=== PATIENT | male | born 1970 | race Caucasian/White ===

== ENCOUNTER 2020-08-20 18:45 | Inpatient (IN) | payer OTHER ==
[2020-08-20] MEDS ORDERED: KETOROLAC 15 MG/ML 1 ML VIAL IVP STA (19:20)
[2020-08-20] MEDS ORDERED: SODIUM CHLORIDE 0.9% 1,000 ML IV STA (19:20)
--- NOTE | 2020-08-20 19:29 | ED ---
Abdominal Pain HPI - General Chief Complaint: Abdominal Pain Stated Complaint: ABD pain Time Seen by Provider: 08/20/20 19:01 Source: patient Mode of arrival: ambulatory Limitations: no limitations - History of Present Illness Initial Comments: Patient is a 49-year-old male presenting to the emergency Department with complaints of abdominal pain at 3 days. Patient states his pain started as generalized abdominal discomfort and pressure about 3 days ago, followed by a few vomiting episodes. Patient states the pain has continued but has now localized to the right lower quadrant. He describes it as a dull ache, currently a 6/10. He denies any nausea or vomiting today, he states he did have a fever yesterday, did resolve with some Tylenol. He states he's only been able to tolerate a little bit of food such as bananna or soup. Denies any history of abdominal surgeries, he states he's been having regular bowel movements and passing gas. He denies any chest pain or shortness of breath, has no further complaints. He is an every day smoker, he denies alcohol or drug use. Upon arrival to the ER he is slightly tachycardia, otherwise vitals are normal. - Related Data Home Medications Medication Instructions Recorded Confirmed Atorvastatin Calcium [Lipitor] 10 mg PO DAILY 08/20/20 08/20/20 Omeprazole 20 mg PO DAILY 08/20/20 08/20/20 Sildenafil Citrate [Viagra] 100 mg PO DAILY PRN 08/20/20 08/20/20 Tamsulosin HCl [Flomax] 0.4 mg PO DAILY 08/20/20 08/20/20 Allergies Allergy/AdvReac Type Severity Reaction Status Date / Time No Known Allergies Allergy Verified 08/20/20 21:13 Review of Systems ROS Statement: Those systems with pertinent positive or pertinent negative responses have been documented in the HPI. ROS Other: All systems not noted in ROS Statement are negative. Past Medical History Past Medical History: No Reported History History of Any Multi-Drug Resistant Organisms: None Reported Past Surgical History: Orthopedic Surgery Past Psychological History: No Psychological Hx Reported Smoking Status: Current every day smoker Past Alcohol Use History: None Reported Past Drug Use History: None Reported General Exam - General Exam Comments Initial Comments: GENERAL: Patient is well-developed and well-nourished. Patient is nontoxic and in mild distress. HEAD: Atraumatic, normocephalic. EYES: Pupils equal round and reactive to light, extraocular movements intact, sclera anicteric, conjunctiva are normal. Eyelids were unremarkable. ENT: TMs normal, nares patent, oropharynx clear without exudates. Moist mucous membranes. NECK: Normal range of motion, supple without lymphadenopathy or JVD. LUNGS: Unlabored respirations. Breath sounds clear to auscultation bilaterally and equal. No wheezes rales or rhonchi. HEART: Regular rate and rhythm without murmurs, rubs or gallops. ABDOMEN: Tender to palpation of the right lower quadrant, umbilical area. Positive guarding. Soft, normoactive bowel sounds. No masses appreciated. : Deferred MUSCULOSKELETAL: Normal extremities with adequate strength and normal range of motion, no pitting or edema. No clubbing or cyanosis. NEUROLOGICAL: Patient is alert and oriented x 3. Motor and sensory are also intact. Cranial nerves II through XII grossly intact. Symmetrical smile. Normal speech, normal gait. PSYCH: Normal mood, normal affect. SKIN: Warm, Dry, normal turgor, no rashes or lesions noted. Limitations: no limitations Course Vital Signs 08/20/20 18:47 Temperature 99.0 F Pulse Rate 103 H Respiratory 18 Rate Blood Pressure 115/70 O2 Sat by Pulse 96 Oximetry Medical Decision Making - Medical Decision Making Patient is a 49-year-old male presenting with abdominal discomfort, 2 episodes o f vomiting and a fever yesterday. Abdominal pain 3 days, is now localized to the right lower quadrant, umbilical area. No history of abdominal surgeries. His vitals are stable, is afebrile today. Labs show a 21.2 white count, lactic acid is normal at 1.6. CT of the abdomen shows a 15 mm dilated appendix, findings of acute appendicitis with moderate to marked inflammatory changes. No evidence of perforation. I discussed these findings with the patient. Patient will be admitted, patient accepted by Dr. Fonseca. Patient will remain NPO, started on antibiotics. Rapid covid is negative. Case discussed with Dr. Wyman. - Lab Data Result diagrams: 08/20/20 19:32 08/20/20 19:32 Lab Results 08/20/20 08/20/20 08/20/20 Range/Units 19:32 19:32 19:32 WBC 21.2 H (3.8-10.6) k/uL RBC 5.53 (4.30-5.90) m/uL Hgb 16.9 (13.0-17.5) gm/dL Hct 48.2 (39.0-53.0) % MCV 87.2 (80.0-100.0) fL MCH 30.6 (25.0-35.0) pg MCHC 35.1 (31.0-37.0) g/dL RDW 13.6 (11.5-15.5) % Plt Count 291 (150-450) k/uL MPV 7.0 Neutrophils % 77 % Lymphocytes % 12 % Monocytes % 8 % Eosinophils % 1 % Basophils % 1 % Neutrophils # 16.3 H (1.3-7.7) k/uL Lymphocytes # 2.5 (1.0-4.8) k/uL Monocytes # 1.6 H (0-1.0) k/uL Eosinophils # 0.3 (0-0.7) k/uL Basophils # 0.2 (0-0.2) k/uL PT 10.4 (9.0-12.0) sec INR 1.0 (<1.2) APTT 21.6 L (22.0-30.0) sec Sodium (137-145) mmol/L Potassium (3.5-5.1) mmol/L Chloride (98-107) mmol/L Carbon Dioxide (22-30) mmol/L Anion Gap mmol/L BUN (9-20) mg/dL Creatinine (0.66-1.25) mg/dL Est GFR (CKD-EPI)AfAm (>60 ml/min/1.73 sqM) Est GFR (CKD-EPI)NonAf (>60 ml/min/1.73 sqM) Glucose (74-99) mg/dL Plasma Lactic Acid Robert (0.7-2.0) mmol/L Calcium (8.4-10.2) mg/dL Total Bilirubin (0.2-1.3) mg/dL AST (17-59) U/L ALT (4-49) U/L Alkaline Phosphatase (38-126) U/L Total Protein (6.3-8.2) g/dL Albumin (3.5-5.0) g/dL Amylase (30-110) U/L Lipase (23-300) U/L Urine Color Yellow Urine Appearance Clear (Clear) Urine pH 6.0 (5.0-8.0) Ur Specific [place] 1.027 (1.001-1.035) Urine Protein Trace H (Negative) Urine Glucose (UA) Negative (Negative) Urine Ketones Negative (Negative) Urine Blood Negative (Negative) Urine Nitrite Negative (Negative) Urine Bilirubin Negative (Negative) Urine Urobilinogen 2.0 (<2.0) mg/dL Ur Leukocyte Esterase Negative (Negative) Coronavirus (PCR) (Not Detectd) 08/20/20 08/20/20 08/20/20 Range/Units 19:32 19:32 20:58 WBC (3.8-10.6) k/uL RBC (4.30-5.90) m/uL Hgb (13.0-17.5) gm/dL Hct (39.0-53.0) % MCV (80.0-100.0) fL MCH (25.0-35.0) pg MCHC (31.0-37.0) g/dL RDW (11.5-15.5) % Plt Count (150-450) k/uL MPV Neutrophils % % Lymphocytes % % Monocytes % % Eosinophils % % Basophils % % Neutrophils # (1.3-7.7) k/uL Lymphocytes # (1.0-4.8) k/uL Monocytes # (0-1.0) k/uL Eosinophils # (0-0.7) k/uL Basophils # (0-0.2) k/uL PT (9.0-12.0) sec INR (<1.2) APTT (22.0-30.0) sec Sodium 133 L (137-145) mmol/L Potassium 4.6 (3.5-5.1) mmol/L Chloride 102 (98-107) mmol/L Carbon Dioxide 20 L (22-30) mmol/L Anion Gap 11 mmol/L BUN 13 (9-20) mg/dL Creatinine 0.94 (0.66-1.25) mg/dL Est GFR (CKD-EPI)AfAm >90 (>60 ml/min/1.73 sqM) Est GFR (CKD-EPI)NonAf >90 (>60 ml/min/1.73 sqM) Glucose 149 H (74-99) mg/dL Plasma Lactic Acid Robert 1.6 (0.7-2.0) mmol/L Calcium 9.0 (8.4-10.2) mg/dL Total Bilirubin 1.1 (0.2-1.3) mg/dL AST 32 (17-59) U/L ALT 25 (4-49) U/L Alkaline Phosphatase 46 (38-126) U/L Total Protein 6.8 (6.3-8.2) g/dL Albumin 3.9 (3.5-5.0) g/dL Amylase 55 (30-110) U/L Lipase 60 (23-300) U/L Urine Color Urine Appearance (Clear) Urine pH (5.0-8.0) Ur Specific [place] (1.001-1.035) Urine Protein (Negative) Urine Glucose (UA) (Negative) Urine Ketones (Negative) Urine Blood (Negative) Urine Nitrite (Negative) Urine Bilirubin (Negative) Urine Urobilinogen (<2.0) mg/dL Ur Leukocyte Esterase (Negative) Coronavirus (PCR) Not Detected (Not Detectd) Disposition Clinical Impression: Acute appendicitis Disposition: ADMITTED IP TO THIS [facility] Condition: Stable Is patient prescribed a controlled substance at d/c from ED?: No Referrals: Shiraz Tilley MD [Primary Care Provider] - 1-2 days Decision Date: 08/20/20 Decision Time: 20:51
[2020-08-20 19:38] LABS: Basophils # (A) 0.2 k/uL (0-0.2); Basophils % (A) 1 %; Eosinophils # (A) 0.3 k/uL (0-0.7); Eosinophils % (A) 1 %; HCT 48.2 % (39.0-53.0); HGB 16.9 gm/dL (13.0-17.5); Lymphocytes # (A) 2.5 k/uL (1.0-4.8); Lymphocytes % (A) 12 %; MCH 30.6 pg (25.0-35.0); MCHC 35.1 g/dL (31.0-37.0); MCV 87.2 fL (80.0-100.0); Monocytes # (A) 1.6 k/uL (0-1.0); Monocytes % (A) 8 %; Neutrophils # (A) 16.3 k/uL (1.3-7.7); Neutrophils % (A) 77 %; Platelet Count 291 k/uL (150-450); RBC 5.53 m/uL (4.30-5.90); RDW 13.6 % (11.5-15.5); WBC 21.2 k/uL (3.8-10.6)
[2020-08-20 19:39] LABS: Appearance,Urine Clear (Clear); Bilirubin,Urine Negative (Negative); Blood,Urine Negative (Negative); Color,Urine Yellow; Glucose,Urine (UA) Negative (Negative); Ketones,Urine Negative (Negative); Leukocyte Esterase,Urine Negative (Negative); Nitrite,Urine Negative (Negative); Protein,Urine Trace (Negative); Specific Gravity,Urine 1.027 (1.001-1.035)
[2020-08-20 19:49] LABS: ALT 25 U/L (4-49); AST 32 U/L (17-59); African American GFR (CKD) >90 (>60 ml/min/1.73 sqM); Albumin 3.9 g/dL (3.5-5.0); Alkaline Phosphatase 46 U/L (38-126); Amylase 55 U/L (30-110); Anion Gap 11 mmol/L; Blood Urea Nitrogen 13 mg/dL (9-20); Carbon Dioxide 20 mmol/L (22-30); Chloride 102 mmol/L (98-107); Glucose 149 mg/dL (74-99); Lipase 60 U/L (23-300); Non-African American GFR(CKD) >90 (>60 ml/min/1.73 sqM); Potassium 4.6 mmol/L (3.5-5.1); Sodium 133 mmol/L (137-145); Total Bilirubin 1.1 mg/dL (0.2-1.3); Total Protein 6.8 g/dL (6.3-8.2)
--- NOTE | 2020-08-20 20:14 | CT ---
EXAMINATION TYPE: CT abdomen pelvis w con DATE OF EXAM: 08/20/2020 COMPARISON: None available. HISTORY: RLQ pain, fever CT DLP: 2244.6 mGycm Automated exposure control for dose reduction was used. TECHNIQUE: Helical acquisition of images was performed from the lung bases through the pelvis. CONTRAST: Performed without Oral Contrast and with IV Contrast, patient injected with 100 mL of Isovue 300. FINDINGS: LUNG BASES: No significant abnormality is appreciated. LIVER/GB: No acute abnormality is appreciated. PANCREAS: No significant abnormality is seen. SPLEEN: No acute abnormality is seen. Scattered multiple small benign splenic calcifications, in keep ing with prior granulomatous disease. ADRENALS: No acute abnormality is seen. 1.1 cm right adrenal nodule. KIDNEYS: No acute abnormality is seen. 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 FREE AIR: No free air is visualized. RETROPERITONEAL ADENOPATHY: None visualized REPRODUCTIVE ORGANS: No significant abnormality is seen URINARY BLADDER: Partially decompressed with wall thickening. PELVIC ADENOPATHY: None visualized. OSSEOUS STRUCTURES: No significant abnormality is seen. BOWEL: 15 mm dilated appendix with appendicolith and moderate to marked surrounding fat stranding. T race pelvic fluid. No free air or bowel obstruction. OTHER: None IMPRESSION: FINDINGS OF ACUTE APPENDICITIS WITH MODERATE TO MARKED INFLAMMATORY CHANGES. NO EVIDENCE OF PERFORATI ON. 1.1 CM RIGHT ADRENAL NODULE, MAY REPRESENT ADENOMA. FOLLOW-UP IMAGING FOR CONFIRMATION MAY BE OBTAINE D CLINICALLY INDICATED. ADDITIONAL CHRONIC AND INCIDENTAL FINDINGS ABOVE. FINDINGS WERE REPORTED TO CARING ED PHYSICIAN BY ME AT THE TIME OF DICTATION.
[2020-08-20 20:28] LABS: Prothrombin Time 10.4 sec (9.0-12.0)
[2020-08-20 20:29] LABS: Partial Thromboplastin Time 21.6 sec (22.0-30.0)
[2020-08-20] MEDS ORDERED: NALOXONE 0.4 MG/ML 1 ML VIAL IV PRN (20:47)
[2020-08-20] MEDS ORDERED: ONDANSETRON 4 MG/2 ML VIAL IVP PRN (20:47)
[2020-08-20] MEDS ORDERED: PIPERACILLIN-TAZOBACTAM 3.375 GM in SODIUM CHLORIDE 0.9% 100 ML IVPB STA (20:52)
[2020-08-20] MEDS: SODIUM CHLORIDE 0.9% 1,000 ML IV SCH (21:09)
[2020-08-20] MEDS: MORPHINE SULFATE 4 MG/ML SYRINGE IV PRN (22:48)
[2020-08-21] MEDS: MORPHINE SULFATE 4 MG/ML SYRINGE IV PRN ×3 (04:35→11:56)
--- NOTE | 2020-08-21 09:01 | P.GSHP ---
History of Present Illness H&P Date: 08/21/20 CHIEF COMPLAINT: Abdominal pain HISTORY OF PRESENT ILLNESS: This is a 49-year-old male with a known history of nicotine dependence, hyperlipidemia, GERD and enlarged prostate. He presents to emergency room with complaints of three-day history of abdominal pain. He initially thought he was having constipation his pain was in the middle of the abdomen. And has now gone down into the right lower quadrant. His pain did and continue to increase in severity. He reports his pain 7 out of 10. He has been having fevers at home. He did have episode of vomiting. He had a temp of 100.2 he's been tachycardic and white count elevated at 21.2. Computed tomography scan did show concerns for an acute appendicitis. He is scheduled for surgery today. PAST MEDICAL HISTORY: See list. PAST SURGICAL HISTORY: See list. MEDICATIONS: See list. ALLERGIES: See list. SOCIAL HISTORY: No illicit drug use. REVIEW OF SYSTEMS: CONSTITUTIONAL: Denies fever or chills. HEENT: Denies blurred vision, vision changes, or eye pain. Denies hemoptysis CARDIOVASCULAR: Denies chest pain or pressure. RESPIRATORY: No shortness of breath. GASTROINTESTINAL: See HPI for pertinent findings HEMATOLOGIC: Denies bleeding disorders. GENITOURINARY: Denies any blood in urine or increased urinary frequency. SKIN: Denies pruitis. Denies rash. PHYSICAL EXAM: VITAL SIGNS: Reviewed GENERAL: Well-developed in no acute distress. HEENT: No sclera icterus. Extraocular movements grossly intact. Moist buccal m ucosa. Head is atraumatic, normocephalic. No nasal drainage. ABDOMEN: Soft. Nondistended. Tenderness with palpation to right lower quadrant. NEUROLOGIC: Alert and oriented. Cranial nerves II through XII grossly intact. LABORATORY DATA: WBC 21.2 Hgb 16.9 creatinine 0.94 lactic 1.6 IMAGING: Computed tomography scan finding showed acute appendicitis with moderate to marked inflammatory changes. No evidence of perforation. ASSESSMENT: 1. Acute appendicitis PLAN: -Patient scheduled for laparoscopic appendectomy today with Dr. Fonseca -Keep patient nothing by mouth -Increase IV fluids to 125 mL per hour normal saline -Continue IV antibiotics Physician Home [employer] Liaison Officer note has been reviewed by physician. Signing provider agrees with the documented findings, assessment, and plan of care. Past Medical History Past Medical History: No Reported History History of Any Multi-Drug Resistant Organisms: None Reported Past Surgical History: Orthopedic Surgery Past Anesthesia/Blood Transfusion Reactions: No Reported Reaction Past Psychological History: No Psychological Hx Reported Smoking Status: Current every day smoker Past Alcohol Use History: None Reported Past Drug Use History: None Reported Medications and Allergies Home Medications Medication Instructions Recorded Confirmed Type Atorvastatin Calcium [Lipitor] 10 mg PO DAILY 08/20/20 08/20/20 History Omeprazole 20 mg PO DAILY 08/20/20 08/20/20 History Sildenafil Citrate [Viagra] 100 mg PO DAILY PRN 08/20/20 08/20/20 History Tamsulosin HCl [Flomax] 0.4 mg PO DAILY 08/20/20 08/20/20 History Allergies Allergy/AdvReac Type Severity Reaction Status Date / Time No Known Allergies Allergy Verified 08/20/20 21:13 Surgical - Exam Vital Signs Temp Pulse Resp BP Pulse Ox 99.0 F 103 H 18 115/70 96 08/20/20 18:47 08/20/20 18:47 08/20/20 18:47 08/20/20 18:47 08/20/20 18:47 Results - Labs 08/20/20 19:32 08/20/20 19:32 Abnormal Lab Results - Last 24 Hours (Table) 08/20/20 08/20/20 08/20/20 Range/Units 19:32 19:32 19:32 WBC 21.2 H (3.8-10.6) k/uL Neutrophils # 16.3 H (1.3-7.7) k/uL Monocytes # 1.6 H (0-1.0) k/uL APTT 21.6 L (22.0-30.0) sec Sodium (137-145) mmol/L Carbon Dioxide (22-30) mmol/L Glucose (74-99) mg/dL Urine Protein Trace H (Negative) 08/20/20 Range/Units 19:32 WBC (3.8-10.6) k/uL Neutrophils # (1.3-7.7) k/uL Monocytes # (0-1.0) k/uL APTT (22.0-30.0) sec Sodium 133 L (137-145) mmol/L Carbon Dioxide 20 L (22-30) mmol/L Glucose 149 H (74-99) mg/dL Urine Protein (Negative) Diabetes panel 08/20/20 Range/Units 19:32 Sodium 133 L (137-145) mmol/L Potassium 4.6 (3.5-5.1) mmol/L Chloride 102 (98-107) mmol/L Carbon Dioxide 20 L (22-30) mmol/L BUN 13 (9-20) mg/dL Creatinine 0.94 (0.66-1.25) mg/dL Glucose 149 H (74-99) mg/dL Calcium 9.0 (8.4-10.2) mg/dL AST 32 (17-59) U/L ALT 25 (4-49) U/L Alkaline Phosphatase 46 (38-126) U/L Total Protein 6.8 (6.3-8.2) g/dL Albumin 3.9 (3.5-5.0) g/dL Calcium panel 08/20/20 Range/Units 19:32 Calcium 9.0 (8.4-10.2) mg/dL Albumin 3.9 (3.5-5.0) g/dL Pituitary panel 08/20/20 Range/Units 19:32 Sodium 133 L (137-145) mmol/L Potassium 4.6 (3.5-5.1) mmol/L Chloride 102 (98-107) mmol/L Carbon Dioxide 20 L (22-30) mmol/L BUN 13 (9-20) mg/dL Creatinine 0.94 (0.66-1.25) mg/dL Glucose 149 H (74-99) mg/dL Calcium 9.0 (8.4-10.2) mg/dL Adrenal panel 08/20/20 Range/Units 19:32 Sodium 133 L (137-145) mmol/L Potassium 4.6 (3.5-5.1) mmol/L Chloride 102 (98-107) mmol/L Carbon Dioxide 20 L (22-30) mmol/L BUN 13 (9-20) mg/dL Creatinine 0.94 (0.66-1.25) mg/dL Glucose 149 H (74-99) mg/dL Calcium 9.0 (8.4-10.2) mg/dL Total Bilirubin 1.1 (0.2-1.3) mg/dL AST 32 (17-59) U/L ALT 25 (4-49) U/L Alkaline Phosphatase 46 (38-126) U/L Total Protein 6.8 (6.3-8.2) g/dL Albumin 3.9 (3.5-5.0) g/dL
[2020-08-21] MEDS: SODIUM CHLORIDE 0.9% 1,000 ML IV SCH ×2 (09:07→17:29)
[2020-08-21] MEDS: PIPERACILLIN-TAZOBACTAM 3.375 GM in SODIUM CHLORIDE 0.9% 100 ML IVPB SCH ×2 (09:07→17:29)
[2020-08-21] MEDS: PANTOPRAZOLE 40 MG/10 ML VIAL IVP SCH (09:35)
[2020-08-21] MEDS ORDERED: ACETAMINOPHEN IV (For NPO) 1,000 MG in EMPTY BAG 1 BAG IVPB ONE (10:59)
[2020-08-21] MEDS ORDERED: IV FLUID CONTINUATION 1,000 ML IV ONE (13:57)
[2020-08-21] MEDS ORDERED: HEPARIN SODIUM,PORCINE 5,000 UNIT/ML 1 ML VIAL SQ ONE (14:25)
[2020-08-21] MEDS ORDERED: BUPIVACAIN-EPI 0.5%-1:200,000 30 ML VIAL SQ ONE ×2 (14:55→15:12)
[2020-08-21] MEDS ORDERED: GLYCOPYRROLATE 0.2 MG/ML 2 ML VIAL ONE (14:55)
[2020-08-21] MEDS ORDERED: ACETAMINOPHEN IV (For NPO) 1,000 MG/100 ML VIAL ONE (14:55)
[2020-08-21] MEDS ORDERED: fentaNYL (PF) 50 MCG/ML 2 ML AMP ONE (14:55)
[2020-08-21] MEDS ORDERED: ROCURONIUM 10 MG/ML (5 ML VIAL) IV ONE (14:55)
[2020-08-21] MEDS ORDERED: SUCCINYLCHOLINE CHLORIDE 100 MG/5 ML SYR IV ONE (14:55)
[2020-08-21] MEDS ORDERED: LIDOCAINE 1% INJ 10MG/ML (20 ML MDV) ONE (14:55)
[2020-08-21] MEDS ORDERED: PROPOFOL 10 MG/ML 20 ML VIAL IV ONE (14:55)
[2020-08-21] MEDS ORDERED: NEOSTIGMINE 1 MG/ML 10 ML VIAL ONE (14:55)
[2020-08-21] MEDS ORDERED: LACTATED RINGERS 1,000 ML IV ONE (15:25)
--- NOTE | 2020-08-21 15:45 | P.OP ---
Date of Procedure: 08/21/20 Preoperative Diagnosis: Acute appendicitis Postoperative Diagnosis: Gangrenous appendicitis Procedure(s) Performed: Laparoscopic appendectomy Anesthesia: ROSITA Surgeon: Vic Fonseca Estimated Blood Loss (ml): 10 Pathology: other (Appendix) Condition: stable Disposition: PACU Description of Procedure: The patient's placed on the operating table in the supine position. The patient received general anesthesia. The abdomen was prepped and draped in the usual sterile fashion. The skin was anesthetized 1% local Xylocaine at the trocar sites. Using an 11 blade the skin was incised at the umbilicus. The umbilicus was grasped with a [place] clamp and then a Veress needle was placed into the peritoneal cavity. Position of the Veress needle was confirmed with positive drop test. After adequate insufflation a 5 mm trocar was placed into the peritoneal cavity. The abdomen was further insufflated. And then the laparoscope was placed in the peritoneal cavity. Next a 5 mm trocar was placed in the midline suprapubic position. And then a 10 mm trocar was placed in the midline epigastric position. The patient was rotated with the right side up and in Trendelenburg. There was a inflammatory mass in the right lower quadrant. Using suction irrigated the mass was explored. There was a pocket of pus. This was aspirated. The appendix appeared necrotic. The base the appendix cannot be visualized. The appendix during the dissection from the base the appendix. Due to the intense inflammatory changes decided to not convert the procedure to an open procedure due to risk of possible right colectomy. At this point the abdomen was irrigated there is no bleeding seen. A [place] drain was placed into the right lower quadrant. It was brought out through a 5 mm trocar site in the epigastric area. The trochars withdrawn. The skin was closed with 3-0 Monocryl suture. Dermabond dressing was applied.
[2020-08-21] MEDS: HYDROmorphone 1 MG/ML 1 ML SYRINGE IVP ONE ×4 (15:58→16:17)
[2020-08-21] MEDS: KETOROLAC 15 MG/ML 1 ML VIAL IVP PRN (16:08)
[2020-08-21] MEDS: HYDROmorphone 1 MG/ML 1 ML SYRINGE IVP PRN (17:36)
[2020-08-21] MEDS: HEPARIN SODIUM,PORCINE 5,000 UNIT/ML 1 ML VIAL SQ SCH (19:45)
--- NOTE | 2020-08-21 20:54 | P.CONS ---
History of Present Illness - History of Present Illness Past medical history of hyperlipidemia and benign prostatic hypertrophy. Presents because of right lower quadrant abdominal pain of a few days in duration with increased severity felt like 10/10, post stent associated with fever, and vomiting 2-3 days ago. With no diarrhea or dysuria. No chest pain or dyspnea. He smokes 1-1.5 pack per day, he was counseled to quit and he agrees but he declined nicotine patch, no alcohol or illicit drugs On admission he is febrile of 100.2. Blood pressure 111/71. Labs significant for leukocytosis of 20 2K. Sodium 133, creatinine normal. Liver enzymes not elevated and lipase is normal. Urinalysis is not suspicious of infections and coronavirus not detected CT of the abdomen and pelvis: Showing appendicitis, 1.1 right adrenal nodule may represent adenoma with follow-up imaging is recommended Patient is already started on Zosyn and normal saline at 1 25 mL/h. Besides pain medication Surgical team are planning to take the patient to the operation room for possible appendectomy Review of Systems CONSTITUTIONAL: No fever, no malaise, no fatigue. HEENT: No recent visual problems or hearing problems. Denied any sore throat. CARDIOVASCULAR: No orthopnea, PND, no palpitations, no syncope. PULMONARY: No shortness of breath, no cough, no hemoptysis. GASTROINTESTINAL: No diarrhea, Normoactive bowel sounds. NEUROLOGICAL: No headaches, no weakness, no numbness. HEMATOLOGICAL: Denies any bleeding or petechiae. GENITOURINARY: Denies any burning micturition, frequency, or urgency. MUSCULOSKELETAL/RHEUMATOLOGICAL: Denies any joint pain, swelling, or any muscle pain. ENDOCRINE: Denies any polyuria or polydipsia. Past Medical History Past Medical History: No Reported History History of Any Multi-Drug Resistant Organisms: None Reported Past Surgical History: Orthopedic Surgery Past Anesthesia/Blood Transfusion Reactions: No Reported Reaction Past Psychological History: No Psychological Hx Reported Smoking Status: Current every day smoker Past Alcohol Use History: None Reported Past Drug Use History: None Reported Medications and Allergies Home Medications Medication Instructions Recorded Confirmed Type Atorvastatin Calcium [Lipitor] 10 mg PO DAILY 08/20/20 08/20/20 History Omeprazole 20 mg PO DAILY 08/20/20 08/20/20 History Sildenafil Citrate [Viagra] 100 mg PO DAILY PRN 02/23/21 02/23/21 History Tamsulosin HCl [Flomax] 0.4 mg PO DAILY 08/20/20 08/20/20 History Allergies Allergy/AdvReac Type Severity Reaction Status Date / Time No Known Allergies Allergy Verified 08/21/20 14:00 Physical Exam Vitals: Vital Signs Temp Pulse Pulse Resp BP Pulse Ox 08/21/20 19:24 98.5 F 71 18 98/67 97 08/21/20 16:45 75 16 130/74 92 L 08/21/20 16:30 80 16 114/60 92 L 08/21/20 16:15 75 18 116/69 97 08/21/20 16:00 68 18 111/71 96 08/21/20 15:46 97.5 F L 83 16 164/87 97 08/21/20 14:00 99.2 F 74 18 121/57 94 L 08/21/20 10:58 100.2 F H 08/21/20 07:35 100.2 F H 106 H 20 99/62 94 L 08/21/20 01:07 99.5 F 93 18 98/57 96 08/20/20 22:50 99.3 F 130/72 92 L Intake and Output 08/21/20 08/21/20 08/21/20 06:59 14:59 22:59 Intake Total 600 700 Output Total 25 Balance 600 675 Intake: IV 600 700 Output: Urine 5 Estimated Blood Loss 20 Other: # Voids 3 # Bowel Movements 2 GENERAL: The patient is alert and oriented x3, not in any acute distress. Well developed, well nourished. HEENT: Pupils are round and equally reacting to light. EOMI. No scleral icterus. No conjunctival pallor. Normocephalic, atraumatic. No pharyngeal erythema. No thyromegaly. CARDIOVASCULAR: S1 and S2 present. No murmurs, rubs, or gallops. PULMONARY: Chest is clear to auscultation, no wheezing or crackles. ABDOMEN: Soft, right lower quadrant tenderness with guarding nondistended, normoactive bowel sounds. No palpable organomegaly. MUSCULOSKELETAL: No joint swelling or deformity. EXTREMITIES: No cyanosis, clubbing, or pedal edema. NEUROLOGICAL: Gross neurological examination did not reveal any focal deficits. SKIN: No rashes. No petechiae Results CBC & Chem 7: 08/20/20 19:32 08/20/20 19:32 Assessment and Plan Assessment: Acute appendicitis, with a plan for appendectomy by surgical team 1.1 right adrenal nodule suspected adenoma, with recommendation for follow-up as an outpatient Sepsis secondary to above with fever and mucositis Hyperlipidemia Obesity Nicotine dependence Plan: This is a pleasant 49 years old male who presents with appendicitis. Plan for appendectomy by surgery team. Continue with IV fluid, pain medication. Continue with Zosyn. Patient also informed on the at bedside about right adrenal adenoma with recommendation for outpatient follow-up and they agree Labs and medication were reviewed.. Continue same treatment. Continue with symptomatic treatment. Resume home medication. Monitor lytes and vitals. DVT and GI prophylaxis. Further recommendations depends on the clinical course of the patient DVT prophylaxis: Subcutaneous heparin GI Prophylaxis: Ppi Prognosis is guarded
--- NOTE | 2020-08-21 23:41 | CONS ---
CONSULTATION DATE OF SERVICE: 08/21/2020 REASON FOR CONSULTATION: Acute gangrenous appendicitis. HISTORY OF PRESENT ILLNESS: The patient is a 49-year-old male who presented to the ER at [facility] last night for evaluation of abdominal pain that has been going on for 3 days before presentation to the hospital. The patient's pain has been mostly in the right lower quadrant area. Patient described the pain to be dull, aching, at times sharp, worse with movement, intensity almost 6 to 7 out of 10 and no radiation. Patient did have nausea and one episode of vomiting. No chest pain, shortness of breath or cough and no diarrhea. With these symptoms, the patient was evaluated by the ER physician. On arrival to the ER, the patient did have a low grade fever of 100.2 degrees Fahrenheit. The patient did have a white count 21.2 with left shift. BUN of 13, creatinine 0.94, urine was negative. Lauren PCR was negative. The patient did have a CT of abdomen and pelvis with evidence of acute appendicitis, but no perforation. The patient was taken to the OR this afternoon. The patient is status post laparoscopic appendectomy. He was noted to have significant gangrenous changes and high risk of needing right hemicolectomy. The patient has been started on Zosyn. Infectious Disease was consulted for further management of antibiotic therapy. REVIEW OF SYSTEMS: Positive points have been mentioned in HPI. Rest of systems are negative. PAST MEDICAL HISTORY: No major illnesses. PAST SURGICAL HISTORY: Some orthopedic surgeries. SOCIAL HISTORY: Current everyday smoker. No drinking or drug use. FAMILY HISTORY: No pertinent findings noticed. ALLERGIES: No known drug allergies. MEDICATIONS: The patient is currently on Zosyn 3.375 g q.8 hours. He is on IV fluids, Zofran, Protonix, Narcan, Toradol, Dilaudid, heparin subcu. PHYSICAL EXAMINATION: Blood pressure 98/67, pulse of 82, temperature 98.5. He is 97% on room air. General description is a middle-aged male lying in bed in no distress. No tachypnea or accessory muscles of respiration use. HEENT: Examination shows no pallor or scleral icterus. Oral mucous membranes dry. No pharyngeal erythema or thrush. Neck: Trachea central. No thyromegaly. Lungs: Unlabored breathing. Clear to auscultation anteriorly. No wheeze or crackles. Heart S1, S2. Regular rate and rhythm. ABDOMEN: Soft. Mildly distended. Tender right upper quadrant area. No guarding. No rigidity. No organomegaly. Extremities: No edema of the feet. Skin examination: No rash or mass palpable. Neurological: The patient is awake, alert, oriented times three. Mood and affect normal. LABS: Hemoglobin is 16. White count 21.2, BUN of 13, creatinine 0.94. CT report as mentioned above. DIAGNOSTIC IMPRESSION AND PLAN: Patient admitted to the hospital with sepsis in this patient who did have a fever, elevated white count. Source likely acute gangrenous appendicitis in this patient who is status post appendectomy and high risk of the right hemicolectomy because of significant inflammatory changes. The likely organism for that need to cover enteric gram-negative both aerobes and anaerobes. PLAN: 1. We will keep the patient on Zosyn 3.375 g q.8 hours. 2. Gentle IV fluid. 3. We will follow on clinical condition and culture to further adjust medication if needed. Thank you for this consultation. Will follow this patient along with you. MMODL / IJN: [id number] /
[2020-08-22] MEDS: KETOROLAC 15 MG/ML 1 ML VIAL IVP PRN ×4 (00:12→21:02)
[2020-08-22] MEDS: PIPERACILLIN-TAZOBACTAM 3.375 GM in SODIUM CHLORIDE 0.9% 100 ML IVPB SCH ×3 (00:20→16:33)
[2020-08-22] MEDS: HYDROmorphone 1 MG/ML 1 ML SYRINGE IVP PRN ×2 (00:20→08:00)
[2020-08-22] MEDS: SODIUM CHLORIDE 0.9% 1,000 ML IV SCH ×3 (03:58→16:33)
[2020-08-22] MEDS: PANTOPRAZOLE 40 MG/10 ML VIAL IVP SCH (07:51)
[2020-08-22] MEDS: HEPARIN SODIUM,PORCINE 5,000 UNIT/ML 1 ML VIAL SQ SCH ×2 (07:51→21:03)
[2020-08-22 10:59] LABS: HCT 43.5 % (39.6-50.0); HGB 14.1 g/dL (13.0-17.0); MCH 29.3 pg (27.0-32.0); MCHC 32.4 g/dL (32.0-37.0); MCV 90.4 fL (80.0-97.0); Mean Platelet Volume 10.2 fL (9.5-12.2); Platelet Count 309 X 10*3/uL (140-440); RBC 4.81 X 10*6/uL (4.40-5.60); RDW 14.4 % (11.5-14.5); WBC 18.98 X 10*3/uL (4.50-10.00)
--- NOTE | 2020-08-22 11:46 | P.PN ---
Subjective Progress Note Date: 08/22/20 CHIEF COMPLAINT: Appendicitis HISTORY OF PRESENT ILLNESS: Patient is status post laparoscopic appendectomy for gangrenous appendicitis. He is currently on IV Zosyn. Infectious disease is on consult. Patient reports that his pain is controlled. He denies any nausea vomiting. He is passing gas no bowel movement. Afebrile. WBC trending down 18.98 He is asking to be started on diet. PHYSICAL EXAM: VITAL SIGNS: Reviewed. GENERAL: Well-developed in no acute distress. HEENT: No sclera icterus. Extraocular movements grossly intact. Moist buccal mucosa. Head is atraumatic, normocephalic. ABDOMEN: Soft. Nondistended. Incision sites clean dry and intact. [place] drain serosanguineous output 70 mL NEUROLOGIC: Alert and oriented. Cranial nerves II through XII grossly intact. ASSESSMENT: 1. Gangrenous appendicitis status post laparoscopic appendectomy 2. Sepsis secondary to gangrenous appendicitis present on admission PLAN: -Start clear liquid diet -Continue antibiotics per infectious disease -Continue pain medication as needed -Encourage patient to ambulate and use incentive spirometer Physician Manager Of Procurement note has been reviewed by physician. Signing provider agrees with the documented findings, assessment, and plan of care. Objective - Vital Signs Vital signs: Vital Signs Temp 98.9 F 08/22/20 07:44 Pulse 86 08/22/20 07:44 Resp 18 08/22/20 07:44 BP 120/68 08/22/20 07:44 Pulse Ox 95 08/22/20 07:44 Intake & Output 08/21/20 08/22/20 08/22/20 18:59 06:59 18:59 Intake Total 1300 Output Total 25 70 Balance 1275 -70 Intake: IV 1300 Output: Drainage 70 Abdomen 70 Urine 5 Estimated Blood Loss 20 Other: Voiding Method Toilet # Voids 3 2 # Bowel Movements 2 - Labs CBC & Chem 7: 08/22/20 06:35 08/20/20 19:32 Labs: Abnormal Lab Results - Last 24 Hours (Table) 08/22/20 Range/Units 06:35 WBC 18.98 H (4.50-10.00) X 10*3/uL
[2020-08-22 11:56] LABS: Basophils # (A) 0.04 X 10*3/uL (0.00-0.10); Basophils % (A) 0.2 %; Eosinophils # (A) 0.02 X 10*3/uL (0.04-0.35); Eosinophils % (A) 0.1 %; Lymphocytes % (A) 7.9 %; Monocytes # (A) 1.66 X 10*3/uL (0.20-1.00); Monocytes % (A) 8.7 %; Neutrophils # (A) 15.64 X 10*3/uL (1.80-7.70); Neutrophils % (A) 82.5 %
--- NOTE | 2020-08-22 12:07 | CDI ---
Documentation Clarification Form Date: 08/22/2020 11:45:15 AM From: Lianna Mckenzie RN CCDS Admit Date: 08/22/2020 08:30:00 AM Patient Name: Tim Samaniego Visit Number: [id number] Discharge Date: ATTENTION: The Clinical Documentation Specialists (CDI) and [facility] Coding Staff appreciate your assistance in clarifying documentation. Please respond to the clarification below the line at the bottom and electronically sign. The CDI & [facility] Coding staff will review the response and follow-up if needed. Please note: Queries are made part of the Legal Health Record. If you have any questions, please contact the author of this message via ITS. Dr. Vic Fonseca Sepsis is documented in the Internal medicine consult 08/21 and In the ID consult 08/21 History/Risk Factors: 49-year-old male presents to the ED with a three-day history of abdominal pain, fevers and one episode of vomiting. Temperature of 100.2. Clinical Indicators: WBC 08/21: 14.5 Lactic acid 08/21: 1.2 Vitals signs on admission 08/21: B/P 121/70, HR 96, Temp 98.0 F Oral, RR 24, SpO2 84% 4L nasal cannula. CT Abdomen 08/20: Acute appendicitis with moderate to marked inflammatory changes. Procedure Note 08/21: Gangrenous appendicitis. Internal Medicine consult 08/21: Sepsis secondary to above with fever and mucositis. ID Consult 08/21: Patient admitted to the hospital with sepsis in this patient who did have a fever, elevated white count and source likely acute gangrenous appendicitis. Treatment: ID Consult: See above Antibiotics: 08/21 Zosyn Ivpb x1; 08/21 Ceftriaxone 2gm Ivpb x1; 08/22 Augmentin 875-125 one po Q12HR UBALDO. In your professional opinion, please clarify if these findings signify one of the following conditions and the cause, if known: Sepsis ruled out Sepsis POA Other, please specify Unable to determine Identify the (suspected) organism Link or clarify if there is associated (due to/with): Organ failure Shock SIRS Criteria (2 or more of the following may indicate SIRS): -Temperature < 96.8F (36C) or > 101.0F (38.3C) -Heart Rate > 90 bpm -Respiratory Rate > 20 breaths/min or PaCO2 < 32 mmHg -White Blood Cell Count > 12,000 or < 4,000 cells/mm3 or > 10% bands -Lactate >2.0 mmol/L (>4.0 is equivalent to septic shock) Documented in 08/23 Surgical progress note by OSVALDO Wells / Dr Fonseca Sepsis secondary to gangrenous appendicitis present on admission. (Last Revision: September 2017) WILBERT
--- NOTE | 2020-08-22 12:46 | P.PN ---
Subjective This is a pleasant 49 years old male with Past medical history of hyperlipidemia and benign prostatic hypertrophy. Presents because of right lower quadrant abdominal pain of a few days in duration with increased severity felt like 04/06, post stent associated with fever, and vomiting 2-3 days ago. With no diarrhea or dysuria. No chest pain or dyspnea. He smokes 1-1.5 pack per day, he was counseled to quit and he agrees but he declined nicotine patch, no alcohol or illicit drugs On admission he is febrile of 100.2. Blood pressure 111/71. Labs significant for leukocytosis of 20 2K. Sodium 133, creatinine normal. Liver enzymes not elevated and lipase is normal. Urinalysis is not suspicious of infections and coronavirus not detected CT of the abdomen and pelvis: Showing appendicitis, 1.1 right adrenal nodule may represent adenoma with follow-up imaging is recommended Patient is already started on Zosyn and normal saline at 1 25 mL/h. Besides pain medication Surgical team are planning to take the patient to the operation room for possible appendectomy 08/22/2020 Patient is a status post laparoscopic cholecystectomy. Patient feels better after the surgery with abdominal pain is 7.8, down to 2-3/10 , is passing gas but no bowel movement. No nausea or vomiting. No other problem. Hemodynamically stable. No more fever since yesterday Leukocytosis improving down to 18.9. Patient is aware of what his 1.1 cm right adrenal nodule and the need for follow-up with his PCP for risk including but not limited cancer are explained to He is currently on Zosyn and IV fluids Objective - Vital Signs Vital signs: Vital Signs Temp 98.9 F 08/22/20 07:44 Pulse 86 08/22/20 07:44 Resp 18 08/22/20 07:44 BP 120/68 08/22/20 07:44 Pulse Ox 95 08/22/20 07:44 Intake & Output 08/21/20 08/22/20 08/22/20 18:59 06:59 18:59 Intake Total 1300 Output Total 25 70 70 Balance 1275 -70 -70 Intake: IV 1300 Output: Drainage 70 70 Abdomen 70 70 Urine 5 Estimated Blood Loss 20 Other: Voiding Method Toilet # Voids 3 2 # Bowel Movements 2 - Exam -GENERAL: The patient is alert and oriented x3, not in any acute distress. Morbidly obese HEENT: Pupils are round and equally reacting to light. EOMI. No scleral icterus. No conjunctival pallor. Normocephalic, atraumatic. No pharyngeal erythema. No thyromegaly. CARDIOVASCULAR: S1 and S2 present. No murmurs, rubs, or gallops. PULMONARY: Chest is clear to auscultation, no wheezing or crackles. -ABDOMEN: Soft, minimal right lower tenderness, nondistended, normoactive bowel sounds. No palpable organomegaly. Laparoscopic site wounds are healing and closed MUSCULOSKELETAL: No joint swelling or deformity. EXTREMITIES: No cyanosis, clubbing, or pedal edema. NEUROLOGICAL: Gross neurological examination did not reveal any focal deficits. SKIN: No rashes. no petechiae. - Labs CBC & Chem 7: 08/22/20 06:35 08/20/20 19:32 Labs: Abnormal Lab Results - Last 24 Hours (Table) 08/22/20 Range/Units 06:35 WBC 18.98 H (4.50-10.00) X 10*3/uL Immature Gran # 0.12 H (0.00-0.04) X 10*3/uL Neutrophils # 15.64 H (1.80-7.70) X 10*3/uL Monocytes # 1.66 H (0.20-1.00) X 10*3/uL Eosinophils # 0.02 L (0.04-0.35) X 10*3/uL Assessment and Plan Assessment: Acute appendicitis, status post laparoscopic appendectomy by surgical team 1.1 right adrenal nodule suspected adenoma, with recommendation for follow-up as an outpatient Sepsis secondary to above with fever and mucositis Hyperlipidemia Obesity Nicotine dependence Plan: This is a pleasant 49 years old male who presents with appendicitis. Status post appendectomy by surgery team. Continue with IV fluid, pain medication. Continue with Zosyn. Continue with postop care. Advance diet as per surgery team Patient also informed on the at bedside about right adrenal adenoma with recommendation for outpatient follow-up and they agree Labs and medication were reviewed.. Continue same treatment. Continue with symptomatic treatment. Resume home medication. Monitor lytes and vitals. DVT and GI prophylaxis. Further recommendations depends on the clinical course of the patient DVT prophylaxis: Subcutaneous heparin GI Prophylaxis: Ppi Thank you for consulting us
--- NOTE | 2020-08-22 23:02 | PN ---
PROGRESS NOTE DATE OF SERVICE: 08/22/2020 REASON FOR FOLLOWUP: Acute gangrenous appendicitis. INTERVAL HISTORY: The patient is currently afebrile. The patient is breathing comfortably. The patient's abdominal pain has slightly decreased in intensity. No chest pain, shortness of breath or cough. PHYSICAL EXAMINATION: Blood pressure 126/73, pulse of 88, temperature 99.5. He is 94% on room air. General description is a middle-aged male lying in bed in no distress. RESPIRATORY SYSTEM: Unlabored breathing. Clear to auscultation anteriorly. HEART: S1, S2. Regular rate and rhythm. ABDOMEN: Soft. No tenderness. LABS: Hemoglobin 14.9, white count 18.98. DIAGNOSTIC IMPRESSION AND PLAN: Patient with acute gangrenous appendicitis, status post appendectomy. The patient is currently covered with Zosyn; to continue while monitoring his clinical course closely. Continue with supportive care. MMODL / IJN: [id number] /
[2020-08-23] MEDS: HYDROmorphone 1 MG/ML 1 ML SYRINGE IVP PRN ×3 (00:20→23:52)
[2020-08-23] MEDS: PIPERACILLIN-TAZOBACTAM 3.375 GM in SODIUM CHLORIDE 0.9% 100 ML IVPB SCH ×4 (00:23→23:48)
[2020-08-23] MEDS: KETOROLAC 15 MG/ML 1 ML VIAL IVP PRN ×2 (05:36→15:36)
[2020-08-23] MEDS: SODIUM CHLORIDE 0.9% 1,000 ML IV SCH ×3 (05:36→20:28)
[2020-08-23] MEDS: PANTOPRAZOLE 40 MG/10 ML VIAL IVP SCH (07:35)
[2020-08-23] MEDS: HEPARIN SODIUM,PORCINE 5,000 UNIT/ML 1 ML VIAL SQ SCH ×2 (07:35→19:39)
[2020-08-23 09:25] LABS: Basophils # (A) 0.05 X 10*3/uL (0.00-0.10); Basophils % (A) 0.4 %; Eosinophils # (A) 0.56 X 10*3/uL (0.04-0.35); HGB 13.8 g/dL (13.0-17.0); Lymphocytes # (A) 1.53 X 10*3/uL (0.90-5.00); Lymphocytes % (A) 10.9 %; MCH 28.9 pg (27.0-32.0); MCHC 32.1 g/dL (32.0-37.0); Mean Platelet Volume 10.1 fL (9.5-12.2); Monocytes # (A) 1.46 X 10*3/uL (0.20-1.00); Monocytes % (A) 10.4 %; Neutrophils # (A) 10.29 X 10*3/uL (1.80-7.70); Neutrophils % (A) 73.7 %; Platelet Count 342 X 10*3/uL (140-440); RBC 4.78 X 10*6/uL (4.40-5.60); RDW 14.1 % (11.5-14.5); WBC 13.98 X 10*3/uL (4.50-10.00)
--- NOTE | 2020-08-23 11:50 | P.PN ---
Subjective This is a pleasant 49 years old male with Past medical history of hyperlipidemia and benign prostatic hypertrophy. Presents because of right lower quadrant abdominal pain of a few days in duration with increased severity felt like 10/10, post stent associated with fever, and vomiting 2-3 days ago. With no diarrhea or dysuria. No chest pain or dyspnea. He smokes 1-1.5 pack per day, he was counseled to quit and he agrees but he declined nicotine patch, no alcohol or illicit drugs On admission he is febrile of 100.2. Blood pressure 111/71. Labs significant for leukocytosis of 20 2K. Sodium 133, creatinine normal. Liver enzymes not elevated and lipase is normal. Urinalysis is not suspicious of infections and coronavirus not detected CT of the abdomen and pelvis: Showing appendicitis, 1.1 right adrenal nodule may represent adenoma with follow-up imaging is recommended Patient is already started on Zosyn and normal saline at 1 25 mL/h. Besides pain medication Surgical team are planning to take the patient to the operation room for possible appendectomy 08/22/2020 Patient is a status post laparoscopic cholecystectomy. Patient feels better after the surgery with abdominal pain is 7.8, down to 2-3/10 , is passing gas but no bowel movement. No nausea or vomiting. No other problem. Hemodynamically stable. No more fever since yesterday Leukocytosis improving down to 18.9. Patient is aware of what his 1.1 cm right adrenal nodule and the need for follow-up with his PCP for risk including but not limited cancer are explained to He is currently on Zosyn and IV fluids 08/23/2020 Patient was lying in his incline or, not in distress. Looks like his abdomen is controlled but is still complaining of from tenderness which is expected at the surgical site. He is still on liquid diet and wanted to be advanced as per surgery team. We had some liquid bowel movement today and he was passing gas yesterday. Hemodynamically he is stable and blood pressure is 129/75. Leukocytosis is trending down to 13.9. Remains on IV Zosyn per ID team I discussed with the patient his plan, he does not want me to call and tell his PCP Dr. Tilley instead he will take the report for his terminal CAT scan to him for follow-up of his right adrenal nodule Objective - Vital Signs Vital signs: Vital Signs Temp 98.4 F 08/23/20 07:40 Pulse 83 08/23/20 07:40 Resp 18 08/23/20 07:40 BP 129/75 08/23/20 07:40 Pulse Ox 95 08/23/20 07:40 Intake & Output 08/22/20 08/23/20 08/23/20 18:59 06:59 18:59 Intake Total 180 Output Total 100 25 Balance -100 -25 180 Intake: Oral 180 Output: Drainage 100 25 Abdomen 100 25 Other: Voiding Method Toilet # Voids 1 - Exam -GENERAL: The patient is alert and oriented x3, not in any acute distress. Morbidly obese HEENT: Pupils are round and equally reacting to light. EOMI. No scleral icterus. No conjunctival pallor. Normocephalic, atraumatic. No pharyngeal erythema. No thyromegaly. CARDIOVASCULAR: S1 and S2 present. No murmurs, rubs, or gallops. PULMONARY: Chest is clear to auscultation, no wheezing or crackles. -ABDOMEN: Soft, minimal right lower tenderness, nondistended, normoactive bowel sounds. No palpable organomegaly. Laparoscopic site wounds are healing and closed MUSCULOSKELETAL: No joint swelling or deformity. EXTREMITIES: No cyanosis, clubbing, or pedal edema. NEUROLOGICAL: Gross neurological examination did not reveal any focal deficits. SKIN: No rashes. no petechiae. - Labs CBC & Chem 7: 08/23/20 05:51 08/20/20 19:32 Labs: Abnormal Lab Results - Last 24 Hours (Table) 08/22/20 08/23/20 Range/Units 06:35 05:51 WBC 13.98 H (4.50-10.00) X 10*3/uL Immature Gran # 0.12 H 0.09 H (0.00-0.04) X 10*3/uL Neutrophils # 15.64 H 10.29 H (1.80-7.70) X 10*3/uL Monocytes # 1.66 H 1.46 H (0.20-1.00) X 10*3/uL Eosinophils # 0.02 L 0.56 H (0.04-0.35) X 10*3/uL Assessment and Plan Assessment: Acute appendicitis, status post laparoscopic appendectomy by surgical team 1.1 right adrenal nodule suspected adenoma, with recommendation for follow-up as an outpatient Sepsis secondary to above with fever and mucositis Hyperlipidemia Obesity Nicotine dependence Plan: This is a pleasant 49 years old male who presents with appendicitis. Status post appendectomy by surgery team. Continue with IV fluid, pain medication. Continue with Zosyn. Continue with postop care. Advance diet as per surgery team Patient also informed on the at bedside about right adrenal adenoma with recommendation for outpatient follow-up and they agree Labs and medication were reviewed.. Continue same treatment. Continue with symptomatic treatment. Resume home medication. Monitor lytes and vitals. DVT and GI prophylaxis. Further recommendations depends on the clinical course of the patient DVT prophylaxis: Subcutaneous heparin GI Prophylaxis: Ppi Thank you for consulting us
--- NOTE | 2020-08-23 13:06 | P.PN ---
Subjective Progress Note Date: 08/23/20 CHIEF COMPLAINT: Appendicitis HISTORY OF PRESENT ILLNESS: Patient is status post laparoscopic appendectomy for gangrenous appendicitis. Patient complains that he is not feeling well today. He did have a liquidy bowel movement this morning. No blood. He is passing gas. Denies any nausea or vomiting. His pain is controlled. He is on a clear liquid diet. Afebrile. WBC 13.98 PHYSICAL EXAM: VITAL SIGNS: Reviewed. GENERAL: Well-developed in no acute distress. HEENT: No sclera icterus. Extraocular movements grossly intact. Moist buccal mucosa. Head is atraumatic, normocephalic. ABDOMEN: Soft. Nondistended. Incision sites clean dry and intact. [place] drain serosanguineous NEUROLOGIC: Alert and oriented. Cranial nerves II through XII grossly intact. ASSESSMENT: 1. Gangrenous appendicitis status post laparoscopic appendectomy 2. Sepsis secondary to gangrenous appendicitis present on admission PLAN: -Continue clear liquid diet -Continue antibiotics per infectious disease -Continue pain medication as needed -Encourage patient to ambulate and use incentive spirometer -GI prophylaxis Protonix and DVT prophylaxis subcu heparin Physician Rolling Attendant note has been reviewed by physician. Signing provider agrees with the documented findings, assessment, and plan of care. Objective - Vital Signs Vital signs: Vital Signs Temp 98.4 F 08/23/20 07:40 Pulse 83 08/23/20 07:40 Resp 18 08/23/20 07:40 BP 129/75 08/23/20 07:40 Pulse Ox 95 08/23/20 07:40 Intake & Output 08/22/20 08/23/20 08/23/20 18:59 06:59 18:59 Intake Total 180 Output Total 100 25 Balance -100 -25 180 Intake: Oral 180 Output: Drainage 100 25 Abdomen 100 25 Other: Voiding Method Toilet # Voids 1 - Labs CBC & Chem 7: 08/23/20 05:51 08/20/20 19:32 Labs: Abnormal Lab Results - Last 24 Hours (Table) 08/23/20 Range/Units 05:51 WBC 13.98 H (4.50-10.00) X 10*3/uL Immature Gran # 0.09 H (0.00-0.04) X 10*3/uL Neutrophils # 10.29 H (1.80-7.70) X 10*3/uL Monocytes # 1.46 H (0.20-1.00) X 10*3/uL Eosinophils # 0.56 H (0.04-0.35) X 10*3/uL
--- NOTE | 2020-08-23 13:20 | P.PN ---
Subjective Progress Note Date: 08/23/20 HISTORY OF PRESENT ILLNESS This is a 49-year-old male patient treated for acute gangrenous appendicitis [facility] post laparoscopic appendectomy on August 21. Patient is found in relating in his room. He denies any nausea vomiting. He does have abdominal pain which is decreased. He denies any shortness of breath or cough. He has been afebrile since the morning of August 21. Heart rate 83, blood pressure 129/75, pulse ox 95% on room air. Leukocytosis improving to 13.9 PHYSICAL EXAMINATION Gen: This is a 49-year-old male patient. He is in relating his room. He appears to be in no acute distress. HEENT: Head is atraumatic, normocephalic. Pupils equal, round. Sclerae is anicteric. NECK: Supple. LUNGS: Clear to auscultation. No wheezes or rhonchi. No intercostal retractions. HEART: Regular rate and rhythm. No murmur. ABDOMEN: Soft. No tenderness. EXTREMITIES: No pedal edema. NEUROLOGICAL: Patient is awake, alert and oriented x3. ASSESSMENT Gangrenous appendicitis status post laparoscopic appendectomy Leukocytosis secondary to appendicitis PLAN Continue Zosyn 3.375 g IV piggyback every 8 hours Continue supportive care Further recommendations as patient progresses. The above dictated assessment and findings were discussed with Dr. Higginbotham. The impression and plan of care have been directed as dictated. Rebecca Allred nurse practitioner acting as scribe for Dr. Higginbotham. Objective - Vital Signs Vital signs: Vital Signs Temp 98.4 F 08/23/20 07:40 Pulse 83 08/23/20 07:40 Resp 18 08/23/20 07:40 BP 129/75 08/23/20 07:40 Pulse Ox 95 08/23/20 07:40 Intake & Output 08/22/20 08/23/20 08/23/20 18:59 06:59 18:59 Intake Total 180 Output Total 100 25 Balance -100 -25 180 Intake: Oral 180 Output: Drainage 100 25 Abdomen 100 25 Other: Voiding Method Toilet # Voids 1 - Labs CBC & Chem 7: 08/23/20 05:51 08/20/20 19:32 Labs: Abnormal Lab Results - Last 24 Hours (Table) 08/23/20 Range/Units 05:51 WBC 13.98 H (4.50-10.00) X 10*3/uL Immature Gran # 0.09 H (0.00-0.04) X 10*3/uL Neutrophils # 10.29 H (1.80-7.70) X 10*3/uL Monocytes # 1.46 H (0.20-1.00) X 10*3/uL Eosinophils # 0.56 H (0.04-0.35) X 10*3/uL
[2020-08-23 15:45] VITALS: BMI 40.6
[2020-08-23] MEDS ORDERED: ACETAMINOPHEN TAB 325 MG TAB PO PRN (19:32)
[2020-08-24] MEDS: SODIUM CHLORIDE 0.9% 1,000 ML IV SCH ×2 (04:39→17:03)
[2020-08-24] MEDS: HEPARIN SODIUM,PORCINE 5,000 UNIT/ML 1 ML VIAL SQ SCH ×2 (08:23→21:46)
[2020-08-24] MEDS: PANTOPRAZOLE 40 MG/10 ML VIAL IVP SCH (08:23)
[2020-08-24] MEDS: PIPERACILLIN-TAZOBACTAM 3.375 GM in SODIUM CHLORIDE 0.9% 100 ML IVPB SCH ×3 (08:23→21:46)
[2020-08-24 08:55] LABS: Basophils # (A) 0.07 X 10*3/uL (0.00-0.10); Basophils % (A) 0.6 %; Eosinophils # (A) 0.63 X 10*3/uL (0.04-0.35); Eosinophils % (A) 5.2 %; HCT 44.4 % (39.6-50.0); HGB 14.8 g/dL (13.0-17.0); Lymphocytes # (A) 1.95 X 10*3/uL (0.90-5.00); MCHC 33.3 g/dL (32.0-37.0); MCV 87.1 fL (80.0-97.0); Mean Platelet Volume 9.6 fL (9.5-12.2); Monocytes # (A) 1.42 X 10*3/uL (0.20-1.00); Monocytes % (A) 11.6 %; Neutrophils # (A) 8.03 X 10*3/uL (1.80-7.70); Neutrophils % (A) 65.9 %; Platelet Count 409 X 10*3/uL (140-440); RDW 13.8 % (11.5-14.5); WBC 12.19 X 10*3/uL (4.50-10.00)
[2020-08-24 09:20] LABS: African American GFR (CKD) 102.7 (60.0-200.0); Albumin 3.3 g/dL (3.80-4.90); Albumin/Globulin Ratio 1.32 (1.60-3.17); Calcium 8.6 mg/dL (8.7-10.3); Globulin 2.5 g/dL (1.6-3.3); Non-African American GFR(CKD) 88.6 (60.0-200.0); Potassium 3.6 mmol/L (3.5-5.5); Total Bilirubin 0.7 mg/dL (0.3-1.2); Total Protein 5.8 g/dL (6.2-8.2)
[2020-08-24] MEDS: HYDROmorphone 1 MG/ML 1 ML SYRINGE IVP PRN ×3 (09:47→17:00)
--- NOTE | 2020-08-24 11:42 | P.PN ---
Subjective This is a pleasant 49 years old male with Past medical history of hyperlipidemia and benign prostatic hypertrophy. Presents because of right lower quadrant abdominal pain of a few days in duration with increased severity felt like 10/10, post stent associated with fever, and vomiting 2-3 days ago. With no diarrhea or dysuria. No chest pain or dyspnea. He smokes 1-1.5 pack per day, he was counseled to quit and he agrees but he declined nicotine patch, no alcohol or illicit drugs On admission he is febrile of 100.2. Blood pressure 111/71. Labs significant for leukocytosis of 20 2K. Sodium 133, creatinine normal. Liver enzymes not elevated and lipase is normal. Urinalysis is not suspicious of infections and coronavirus not detected CT of the abdomen and pelvis: Showing appendicitis, 1.1 right adrenal nodule may represent adenoma with follow-up imaging is recommended Patient is already started on Zosyn and normal saline at 1 25 mL/h. Besides pain medication Surgical team are planning to take the patient to the operation room for possible appendectomy 08/22/2020 Patient is a status post laparoscopic cholecystectomy. Patient feels better after the surgery with abdominal pain is 7.8, down to 2-3/10 , is passing gas but no bowel movement. No nausea or vomiting. No other problem. Hemodynamically stable. No more fever since yesterday Leukocytosis improving down to 18.9. Patient is aware of what his 1.1 cm right adrenal nodule and the need for follow-up with his PCP for risk including but not limited cancer are explained to He is currently on Zosyn and IV fluids 08/23/2020 Patient was lying in his incline or, not in distress. Looks like his abdomen is controlled but is still complaining of from tenderness which is expected at the surgical site. He is still on liquid diet and wanted to be advanced as per surgery team. We had some liquid bowel movement today and he was passing gas yesterday. Hemodynamically he is stable and blood pressure is 129/75. Leukocytosis is trending down to 13.9. Remains on IV Zosyn per ID team I discussed with the patient his plan, he does not want me to call and tell his PCP Dr. Tilley instead he will take the report for his terminal CAT scan to him for follow-up of his right adrenal nodule 08/24/2020 Patient is awake, he still on clear liquid diet with no nausea vomiting, he has minimal abdominal pain while he is at rest. He has some small bowel movements yesterday and today. His vitals are stable and please see is slightly trending down to 12.19 K BMP and liver enzymes are unremarkable. He remains on Zosyn with infectious disease team on the case He is currently on Zosyn and normal saline at 75 mL/h Surgery primary team on the case and the patient is seen in the hospital until Wednesday at least Objective - Vital Signs Vital signs: Vital Signs Temp 98.5 F 08/24/20 08:00 Pulse 85 08/24/20 08:00 Resp 16 08/24/20 08:00 BP 110/67 08/24/20 08:00 Pulse Ox 95 08/24/20 08:00 Intake & Output 08/23/20 08/24/20 08/24/20 18:59 06:59 18:59 Intake Total 720 Output Total 20 18 Balance 700 -18 Weight 124.738 kg Intake: Oral 720 Output: Drainage 20 18 Abdomen 20 18 Other: Voiding Method Toilet # Voids 1 3 # Bowel Movements 1 - Exam -GENERAL: The patient is alert and oriented x3, not in any acute distress. Morbidly obese HEENT: Pupils are round and equally reacting to light. EOMI. No scleral icterus. No conjunctival pallor. Normocephalic, atraumatic. No pharyngeal erythema. No thyromegaly. CARDIOVASCULAR: S1 and S2 present. No murmurs, rubs, or gallops. PULMONARY: Chest is clear to auscultation, no wheezing or crackles. -ABDOMEN: Soft, minimal right lower tenderness, nondistended, normoactive bowel sounds. No palpable organomegaly. Laparoscopic site wounds are healing and closed MUSCULOSKELETAL: No joint swelling or deformity. EXTREMITIES: No cyanosis, clubbing, or pedal edema. NEUROLOGICAL: Gross neurological examination did not reveal any focal deficits. SKIN: No rashes. no petechiae. - Labs CBC & Chem 7: 08/24/20 06:09 08/24/20 06:09 Labs: Abnormal Lab Results - Last 24 Hours (Table) 08/24/20 08/24/20 Range/Units 06:09 06:09 WBC 12.19 H (4.50-10.00) X 10*3/uL Immature Gran # 0.09 H (0.00-0.04) X 10*3/uL Neutrophils # 8.03 H (1.80-7.70) X 10*3/uL Monocytes # 1.42 H (0.20-1.00) X 10*3/uL Eosinophils # 0.63 H (0.04-0.35) X 10*3/uL BUN/Creatinine Ratio 21.00 H (12.00-20.00) Ratio Calcium 8.6 L (8.7-10.3) mg/dL Total Protein 5.8 L (6.2-8.2) g/dL Albumin 3.30 L (3.80-4.90) g/dL Albumin/Globulin Ratio 1.32 L (1.60-3.17) g/dL Assessment and Plan Assessment: Acute appendicitis, status post laparoscopic appendectomy by surgical team 1.1 right adrenal nodule suspected adenoma, with recommendation for follow-up as an outpatient Sepsis secondary to above with fever and mucositis Hyperlipidemia Obesity Nicotine dependence Plan: This is a pleasant 49 years old male who presents with appendicitis. Status post appendectomy by surgery team. Continue with IV fluid, pain medication. Continue with Zosyn. Continue with postop care. Advance diet as per surgery team Patient also informed on the at bedside about right adrenal adenoma with recommendation for outpatient follow-up and they agree Labs and medication were reviewed.. Continue same treatment. Continue with symptomatic treatment. Resume home medication. Monitor lytes and vitals. DVT and GI prophylaxis. Further recommendations depends on the clinical course of the patient DVT prophylaxis: Subcutaneous heparin GI Prophylaxis: Ppi Thank you for consulting us
--- NOTE | 2020-08-24 13:07 | PN ---
PROGRESS NOTE DATE OF SERVICE: 08/24/2020 REASON FOR FOLLOWUP: Acute gangrenous appendicitis. INTERVAL HISTORY: The patient is currently afebrile. Patient is breathing comfortably. Denies having any chest pain. No shortness of breath. No cough. No abdominal discomfort. No nausea, no vomiting, and did have some loose stools. PHYSICAL EXAMINATION: Blood pressure 110/67, pulse 85. Temperature 98.5. He is 95% on room air. General description: The patient is a middle-aged male up in the room in no distress. Respiratory system: Unlabored breathing, decreased breath sounds in the bases. No wheeze. Heart S1, S2. Regular rate and rhythm. ABDOMEN: Soft, slightly distended. No guarding or rigidity. LABS: Hemoglobin is 14.8, white count 21.9, creatinine 1.0. DIAGNOSTIC IMPRESSION AND PLAN: Patient with gangrenous appendicitis status post laparoscopic attempted resection. The patient is currently covered with Zosyn that will be continued. White count showing a downward trend and continue supportive care. MMODL / IJN: [id number] /
--- NOTE | 2020-08-24 19:13 | P.PN ---
Subjective Progress Note Date: 08/24/20 He reports waiting 2 to 3 days prior to presentation of appendicitis. He has R[place] drain serous. He reports moderate pain as he forgot to request for pain medication. He was feeling distended. He is ambulating. He is on clear liquid diet. Continue IV antibiotics. Recommend schedule non-narcotic pain medications. Objective - Vital Signs Vital signs: Vital Signs Temp 98.4 F 08/24/20 14:00 Pulse 75 08/24/20 14:00 Resp 16 08/24/20 14:00 BP 115/75 08/24/20 14:00 Pulse Ox 95 08/24/20 16:23 Intake & Output 08/24/20 08/24/20 08/25/20 06:59 18:59 06:59 Intake Total 540 Output Total 18 Balance -18 540 Intake: Oral 540 Output: Drainage 18 Abdomen 18 Other: Voiding Method Toilet # Voids 3 2 - Labs CBC & Chem 7: 08/24/20 06:09 08/24/20 06:09 Labs: Abnormal Lab Results - Last 24 Hours (Table) 08/24/20 08/24/20 Range/Units 06:09 06:09 WBC 12.19 H (4.50-10.00) X 10*3/uL Immature Gran # 0.09 H (0.00-0.04) X 10*3/uL Neutrophils # 8.03 H (1.80-7.70) X 10*3/uL Monocytes # 1.42 H (0.20-1.00) X 10*3/uL Eosinophils # 0.63 H (0.04-0.35) X 10*3/uL BUN/Creatinine Ratio 21.00 H (12.00-20.00) Ratio Calcium 8.6 L (8.7-10.3) mg/dL Total Protein 5.8 L (6.2-8.2) g/dL Albumin 3.30 L (3.80-4.90) g/dL Albumin/Globulin Ratio 1.32 L (1.60-3.17) g/dL
[2020-08-24] MEDS: ACETAMINOPHEN TAB 500 MG TAB PO SCH (21:45)
[2020-08-24] MEDS: KETOROLAC 15 MG/ML 1 ML VIAL IVP SCH (21:46)
[2020-08-25] MEDS: KETOROLAC 15 MG/ML 1 ML VIAL IVP SCH ×3 (01:08→11:23)
[2020-08-25] MEDS: ACETAMINOPHEN TAB 500 MG TAB PO SCH ×4 (01:08→17:01)
[2020-08-25] MEDS: SODIUM CHLORIDE 0.9% 1,000 ML IV SCH ×2 (04:28→17:38)
[2020-08-25] MEDS: PIPERACILLIN-TAZOBACTAM 3.375 GM in SODIUM CHLORIDE 0.9% 100 ML IVPB SCH ×2 (08:41→16:15)
[2020-08-25] MEDS: HEPARIN SODIUM,PORCINE 5,000 UNIT/ML 1 ML VIAL SQ SCH ×2 (08:41→19:35)
[2020-08-25] MEDS: PANTOPRAZOLE 40 MG/10 ML VIAL IVP SCH (08:41)
--- NOTE | 2020-08-25 10:17 | P.PN ---
Subjective This is a pleasant 49 years old male with Past medical history of hyperlipidemia and benign prostatic hypertrophy. Presents because of right lower quadrant abdominal pain of a few days in duration with increased severity felt like 10/10, post stent associated with fever, and vomiting 2-3 days ago. With no diarrhea or dysuria. No chest pain or dyspnea. He smokes 1-1.5 pack per day, he was counseled to quit and he agrees but he declined nicotine patch, no alcohol or illicit drugs On admission he is febrile of 100.2. Blood pressure 111/71. Labs significant for leukocytosis of 20 2K. Sodium 133, creatinine normal. Liver enzymes not elevated and lipase is normal. Urinalysis is not suspicious of infections and coronavirus not detected CT of the abdomen and pelvis: Showing appendicitis, 1.1 right adrenal nodule may represent adenoma with follow-up imaging is recommended Patient is already started on Zosyn and normal saline at 1 25 mL/h. Besides pain medication Surgical team are planning to take the patient to the operation room for possible appendectomy 08/22/2020 Patient is a status post laparoscopic cholecystectomy. Patient feels better after the surgery with abdominal pain is 7.8, down to 2-3/10 , is passing gas but no bowel movement. No nausea or vomiting. No other problem. Hemodynamically stable. No more fever since yesterday Leukocytosis improving down to 18.9. Patient is aware of what his 1.1 cm right adrenal nodule and the need for follow-up with his PCP for risk including but not limited cancer are explained to He is currently on Zosyn and IV fluids 08/23/2020 Patient was lying in his incline or, not in distress. Looks like his abdomen is controlled but is still complaining of from tenderness which is expected at the surgical site. He is still on liquid diet and wanted to be advanced as per surgery team. We had some liquid bowel movement today and he was passing gas yesterday. Hemodynamically he is stable and blood pressure is 129/75. Leukocytosis is trending down to 13.9. Remains on IV Zosyn per ID team I discussed with the patient his plan, he does not want me to call and tell his PCP Dr. Tilley instead he will take the report for his terminal CAT scan to him for follow-up of his right adrenal nodule 08/24/2020 Patient is awake, he still on clear liquid diet with no nausea vomiting, he has minimal abdominal pain while he is at rest. He has some small bowel movements yesterday and today. His vitals are stable and please see is slightly trending down to 12.19 K BMP and liver enzymes are unremarkable. He remains on Zosyn with infectious disease team on the case He is currently on Zosyn and normal saline at 75 mL/h Surgery primary team on the case and the patient is seen in the hospital until Wednesday at least 08/25/2020 This morning patient looks clinically the same with slow progress. Risks awakened looks comfortable sitting in chair. His abdominal pain is minimal. He remains on a clear liquid diet. His total has a total small bowel movement. No other issue He is hemodynamically stable. No labs from today A still on Zosyn. Other fluids were lowered to 75 mL/h. Surgery team on the case as well. Objective - Vital Signs Vital signs: Vital Signs Temp 98.2 F 08/25/20 08:00 Pulse 73 08/25/20 08:00 Resp 19 08/25/20 08:00 BP 115/74 08/25/20 08:00 Pulse Ox 96 08/25/20 08:00 Intake & Output 08/24/20 08/25/20 08/25/20 18:59 06:59 18:59 Intake Total 540 1300 Balance 540 1300 Intake: Intake, IV Titration 1000 Amount Piperacillin-Tazobactam 3 100 .375 gm In Sodium Chloride 0.9% 100 ml @ 25 mls/hr IVPB Q8HR [facility] Rx# :[id number] Sodium Chloride 0.9% 1, 900 000 ml @ 75 mls/hr IV . [id number] [facility] Rx#:[id number] Oral 540 300 Other: Voiding Method Toilet # Voids 2 - Exam -GENERAL: The patient is alert and oriented x3, not in any acute distress. Morbidly obese HEENT: Pupils are round and equally reacting to light. EOMI. No scleral icterus. No conjunctival pallor. Normocephalic, atraumatic. No pharyngeal erythema. No thyromegaly. CARDIOVASCULAR: S1 and S2 present. No murmurs, rubs, or gallops. PULMONARY: Chest is clear to auscultation, no wheezing or crackles. -ABDOMEN: Soft, minimal right lower tenderness, nondistended, normoactive bowel sounds. No palpable organomegaly. Laparoscopic site wounds are healing and closed MUSCULOSKELETAL: No joint swelling or deformity. EXTREMITIES: No cyanosis, clubbing, or pedal edema. NEUROLOGICAL: Gross neurological examination did not reveal any focal deficits. SKIN: No rashes. no petechiae. - Labs CBC & Chem 7: 08/24/20 06:09 08/24/20 06:09 Assessment and Plan Assessment: Acute appendicitis, status post laparoscopic appendectomy by surgical team 1.1 right adrenal nodule suspected adenoma, with recommendation for follow-up as an outpatient Sepsis secondary to above with fever and mucositis Hyperlipidemia Obesity Nicotine dependence Plan: This is a pleasant 49 years old male who presents with appendicitis. Status post appendectomy by surgery team. Continue with IV fluid, pain medication. Continue with Zosyn. Continue with postop care. Advance diet as per surgery team Patient also informed on the at bedside about right adrenal adenoma with recommendation for outpatient follow-up and they agree Labs and medication were reviewed.. Continue same treatment. Continue with symptomatic treatment. Resume home medication. Monitor lytes and vitals. DVT and GI prophylaxis. Further recommendations depends on the clinical course of the patient DVT prophylaxis: Subcutaneous heparin GI Prophylaxis: Ppi Thank you for consulting us
[2020-08-25 15:19] LABS: HGB 14.5 gm/dL (13.0-17.5); MCH 29.2 pg (25.0-35.0); MCHC 33.6 g/dL (31.0-37.0); MCV 86.8 fL (80.0-100.0); Mean Platelet Volume 6.6; Platelet Count 434 k/uL (150-450); RBC 4.95 m/uL (4.30-5.90); RDW 13.7 % (11.5-15.5); WBC 12.9 k/uL (3.8-10.6)
--- NOTE | 2020-08-25 16:24 | P.PN ---
Subjective Progress Note Date: 08/25/20 He is doing better with tylenol. He had a reaction to toradol and verified. He can tolerate Aleve and ibuprofen oral. "I feel a lot better" He is ambulating. R[place] serous. Antibiotic management done by infectious disease team. WBC is elevated. Will advance diet Toradol discontinued Continue scheduled tylenol Objective - Vital Signs Vital signs: Vital Signs Temp 98.2 F 08/25/20 14:00 Pulse 74 08/25/20 14:00 Resp 16 08/25/20 14:00 BP 153/52 08/25/20 14:00 Pulse Ox 96 08/25/20 15:31 Intake & Output 08/24/20 08/25/20 08/25/20 18:59 06:59 18:59 Intake Total 540 1300 Output Total 10 Balance 540 1300 -10 Intake: Intake, IV Titration 1000 Amount Piperacillin-Tazobactam 3 100 .375 gm In Sodium Chloride 0.9% 100 ml @ 25 mls/hr IVPB Q8HR [facility] Rx# :[id number] Sodium Chloride 0.9% 1, 900 000 ml @ 75 mls/hr IV . [id number] [facility] Rx#:[id number] Oral 540 300 Output: Drainage 10 Abdomen 10 Other: Voiding Method Toilet # Voids 2 - Labs CBC & Chem 7: 08/25/20 14:42 08/24/20 06:09 Labs: Abnormal Lab Results - Last 24 Hours (Table) 08/25/20 Range/Units 14:42 WBC 12.9 H (3.8-10.6) k/uL
[2020-08-25 16:32] LABS: Eosinophils # (M) 0.39 k/uL (0-0.7); Lymphocytes # (M) 2.97 k/uL (1.0-4.8); Monocytes # (M) 1.16 k/uL (0-1.0); Neutrophils # (M) 8.39 k/uL (1.3-7.7); Neutrophils % (M) 65 %; Nucleated Red Blood Cells 0 /100 WBC (0-0); Total Cells Counted 100
[2020-08-26] MEDS: PIPERACILLIN-TAZOBACTAM 3.375 GM in SODIUM CHLORIDE 0.9% 100 ML IVPB SCH ×2 (00:57→09:32)
[2020-08-26] MEDS: ACETAMINOPHEN TAB 500 MG TAB PO SCH ×3 (00:57→12:26)
[2020-08-26 04:47] VITALS: RESP 16
--- NOTE | 2020-08-26 06:31 | PN ---
PROGRESS NOTE DATE OF SERVICE: 08/25/2020 REASON FOR FOLLOWUP: Gangrenous appendicitis. INTERVAL HISTORY: The patient is currently afebrile. The patient is breathing comfortably. The patient denies having any chest pain or shortness of breath or cough. Abdominal pain is currently controlled. No nausea, vomiting. No diarrhea. PHYSICAL EXAMINATION: Blood pressure 132/75, pulse of 71, temperature 98.8. He is 96% on room air. General description is a middle-aged male up in the room in no distress. Respiratory system: Unlabored breathing, clear to auscultation. HEART: S1, S2. Regular rate. ABDOMEN: Soft, slightly distended. No guarding or rigidity. LABS: Hemoglobin is 14.5, white count 12.9, BUN of 21, creatinine 1.0. DIAGNOSTIC IMPRESSION AND PLAN: Patient with acute gangrenous appendicitis, status post appendectomy. The patient is currently covered with Zosyn. White count slightly elevated. We will monitor closely and continue supportive care. MMODL / IJN: [id number] /
[2020-08-26 08:44] VITALS: BP 127/77; PULSE 63; TEMP 97.8
[2020-08-26 09:04] LABS: Basophils # (A) 0.1 k/uL (0-0.2); Basophils % (A) 1 %; Eosinophils # (A) 0.5 k/uL (0-0.7); Eosinophils % (A) 4 %; HCT 42.2 % (39.0-53.0); Lymphocytes # (A) 2.1 k/uL (1.0-4.8); Lymphocytes % (A) 18 %; MCH 28.6 pg (25.0-35.0); MCHC 33.1 g/dL (31.0-37.0); MCV 86.4 fL (80.0-100.0); Monocytes # (A) 0.9 k/uL (0-1.0); Monocytes % (A) 8 %; Neutrophils # (A) 7.6 k/uL (1.3-7.7); Neutrophils % (A) 65 %; Platelet Count 445 k/uL (150-450); RBC 4.88 m/uL (4.30-5.90); RDW 13.7 % (11.5-15.5); WBC 11.7 k/uL (3.8-10.6)
[2020-08-26] MEDS: SODIUM CHLORIDE 0.9% 1,000 ML IV SCH (09:29)
[2020-08-26] MEDS: HEPARIN SODIUM,PORCINE 5,000 UNIT/ML 1 ML VIAL SQ SCH (09:32)
[2020-08-26] MEDS: PANTOPRAZOLE 40 MG/10 ML VIAL IVP SCH (09:32)
--- NOTE | 2020-08-26 09:53 | P.PN ---
Subjective This is a pleasant 49 years old male with Past medical history of hyperlipidemia and benign prostatic hypertrophy. Presents because of right lower quadrant abdominal pain of a few days in duration with increased severity felt like 10/10, post stent associated with fever, and vomiting 2-3 days ago. With no diarrhea or dysuria. No chest pain or dyspnea. He smokes 1-1.5 pack per day, he was counseled to quit and he agrees but he declined nicotine patch, no alcohol or illicit drugs On admission he is febrile of 100.2. Blood pressure 111/71. Labs significant for leukocytosis of 20 2K. Sodium 133, creatinine normal. Liver enzymes not elevated and lipase is normal. Urinalysis is not suspicious of infections and coronavirus not detected CT of the abdomen and pelvis: Showing appendicitis, 1.1 right adrenal nodule may represent adenoma with follow-up imaging is recommended Patient is already started on Zosyn and normal saline at 1 25 mL/h. Besides pain medication Surgical team are planning to take the patient to the operation room for possible appendectomy 08/22/2020 Patient is a status post laparoscopic cholecystectomy. Patient feels better after the surgery with abdominal pain is 7.8, down to 2-3/10 , is passing gas but no bowel movement. No nausea or vomiting. No other problem. Hemodynamically stable. No more fever since yesterday Leukocytosis improving down to 18.9. Patient is aware of what his 1.1 cm right adrenal nodule and the need for follow-up with his PCP for risk including but not limited cancer are explained to He is currently on Zosyn and IV fluids 08/23/2020 Patient was lying in his incline or, not in distress. Looks like his abdomen is controlled but is still complaining of from tenderness which is expected at the surgical site. He is still on liquid diet and wanted to be advanced as per surgery team. We had some liquid bowel movement today and he was passing gas yesterday. Hemodynamically he is stable and blood pressure is 129/75. Leukocytosis is trending down to 13.9. Remains on IV Zosyn per ID team I discussed with the patient his plan, he does not want me to call and tell his PCP Dr. Tilley instead he will take the report for his terminal CAT scan to him for follow-up of his right adrenal nodule 08/24/2020 Patient is awake, he still on clear liquid diet with no nausea vomiting, he has minimal abdominal pain while he is at rest. He has some small bowel movements yesterday and today. His vitals are stable and please see is slightly trending down to 12.19 K BMP and liver enzymes are unremarkable. He remains on Zosyn with infectious disease team on the case He is currently on Zosyn and normal saline at 75 mL/h Surgery primary team on the case and the patient is seen in the hospital until Wednesday at least 08/25/2020 This morning patient looks clinically the same with slow progress. Risks awakened looks comfortable sitting in chair. His abdominal pain is minimal. He remains on a clear liquid diet. His total has a total small bowel movement. No other issue He is hemodynamically stable. No labs from today A still on Zosyn. Other fluids were lowered to 75 mL/h. Surgery team on the case as well. 08/26/2020 Patient tolerated regular diet last night and this morning with no nausea vomiting. Minimal abdominal pain or discomfort. No nausea vomiting. He is am bulating. He is hemodynamically stable and leukocytosis trending down to 11.7 today. He remains on Zosyn. Objective - Vital Signs Vital signs: Vital Signs Temp 97.8 F 08/26/20 08:00 Pulse 63 08/26/20 08:00 Resp 16 08/26/20 08:00 BP 127/77 08/26/20 08:00 Pulse Ox 96 08/26/20 08:00 Intake & Output 08/25/20 08/26/20 08/26/20 18:59 06:59 18:59 Intake Total 1600 Output Total 10 Balance -10 1600 Intake: Intake, IV Titration 1000 Amount Piperacillin-Tazobactam 3 100 .375 gm In Sodium Chloride 0.9% 100 ml @ 25 mls/hr IVPB Q8HR [facility] Rx# :[id number] Sodium Chloride 0.9% 1, 900 000 ml @ 75 mls/hr IV . [id number] [facility] Rx#:[id number] Oral 600 Output: Drainage 10 Abdomen 10 Other: Voiding Method Toilet # Voids 4 3 # Bowel Movements 1 1 - Exam -GENERAL: The patient is alert and oriented x3, not in any acute distress. Morbidly obese HEENT: Pupils are round and equally reacting to light. EOMI. No scleral icterus. No conjunctival pallor. Normocephalic, atraumatic. No pharyngeal erythema. No thyromegaly. CARDIOVASCULAR: S1 and S2 present. No murmurs, rubs, or gallops. PULMONARY: Chest is clear to auscultation, no wheezing or crackles. -ABDOMEN: Soft, minimal right lower tenderness, nondistended, normoactive bowel sounds. No palpable organomegaly. Laparoscopic site wounds are healing and closed MUSCULOSKELETAL: No joint swelling or deformity. EXTREMITIES: No cyanosis, clubbing, or pedal edema. NEUROLOGICAL: Gross neurological examination did not reveal any focal deficits. SKIN: No rashes. no petechiae. - Labs CBC & Chem 7: 08/26/20 08:26 08/24/20 06:09 Labs: Abnormal Lab Results - Last 24 Hours (Table) 08/25/20 08/26/20 Range/Units 14:42 08:26 WBC 12.9 H 11.7 H (3.8-10.6) k/uL Neutrophils # (Manual) 8.39 H (1.3-7.7) k/uL Monocytes # (Manual) 1.16 H (0-1.0) k/uL Assessment and Plan Assessment: Acute appendicitis, status post laparoscopic appendectomy by surgical team 1.1 right adrenal nodule suspected adenoma, with recommendation for follow-up as an outpatient Sepsis secondary to above with fever and mucositis Hyperlipidemia Obesity Nicotine dependence Plan: This is a pleasant 49 years old male who presents with appendicitis. Status pos t appendectomy by surgery team. Continue with IV fluid, pain medication. Continue with Zosyn. Continue with postop care. Advance diet as per surgery team Patient also informed on the at bedside about right adrenal adenoma with recommendation for outpatient follow-up and they agree Labs and medication were reviewed.. Continue same treatment. Continue with symptomatic treatment. Resume home medication. Monitor lytes and vitals. DVT and GI prophylaxis. Further recommendations depends on the clinical course of the patient DVT prophylaxis: Subcutaneous heparin GI Prophylaxis: Ppi Thank you for consulting us
--- NOTE | 2020-08-26 13:45 | P.DS ---
Providers Date of admission: 08/22/20 08:30 Expected date of discharge: 08/26/20 Attending physician: Vic Fonseca Consults: 08/21/20 12:59 Consult Physician Routine Consulting Provider: Howard Hernandez Consult Reason/Comments: med manage Do you want consulting provider notified?: Yes 08/21/20 15:46 Consult Physician Routine Consulting Provider: Lisa Higginbotham Consult Reason/Comments: Gangrenous appendicitis Do you want consulting provider notified?: Yes Primary care physician: Shiraz Tilley Hospital Course: Discharge diagnosis 1. Gangrenous appendicitis status post laparoscopic appendectomy 2. Sepsis secondary to gangrenous appendicitis present on admission 3. 1.1 right adrenal nodule may represent adenoma noted on CAT scan. Patient will follow-up with PCP outpatient Hospital course This is a 49-year-old male with a known history of nicotine dependence, hyperlipidemia, GERD and enlarged prostate. He presents to emergency room with complaints of three-day history of abdominal pain. He initially thought he was having constipation his pain was in the middle of the abdomen. And has now gone down into the right lower quadrant. His pain did and continue to increase in severity. He reports his pain 7 out of 10. He has been having fevers at home. He did have episode of vomiting. He had a temp of 100.2 he's been tachycardic and white count elevated at 21.2. Computed tomography scan did show concerns for an acute appendicitis. Patient is status post laparoscopic appendectomy for gangrenous appendicitis. Patient tolerated surgery well. His pain is controlled. He is tolerating regular diet. He is having bowel movements and passing gas. He has been up and ambulating. His white count is trending down. He is afebrile. Patient will go home with 10 more days of Augmentin per ID recommendations. Patient is stable for discharge. Please refer to chart for any further details. Physician Litigation Attorney Associate note has been reviewed by physician. Signing provider agrees with the documented findings, assessment, and plan of care. Patient Condition at Discharge: Stable Plan - Discharge Summary Discharge Rx Participant: Yes New Discharge Prescriptions: New Amoxicillin/Potassium Clav [Augmentin 875-125 Tablet] 1 tab PO BID 10 Days #20 tab Acetaminophen Tab [Tylenol Tab] 650 mg PO Q4H PRN #30 tablet PRN Reason: Pain Continue Atorvastatin Calcium [Lipitor] 10 mg PO DAILY Omeprazole 20 mg PO DAILY Sildenafil Citrate [Viagra] 100 mg PO DAILY PRN PRN Reason: E.D. Tamsulosin HCl [Flomax] 0.4 mg PO DAILY Discharge Medication List Atorvastatin Calcium [Lipitor] 10 mg PO DAILY 08/20/20 [History] Omeprazole 20 mg PO DAILY 08/20/20 [History] Sildenafil Citrate [Viagra] 100 mg PO DAILY PRN 08/20/20 [History] Tamsulosin HCl [Flomax] 0.4 mg PO DAILY 08/20/20 [History] Acetaminophen Tab [Tylenol Tab] 650 mg PO Q4H PRN #30 tablet 08/26/20 [Rx] Amoxicillin/Potassium Clav [Augmentin 875-125 Tablet] 1 tab PO BID 10 Days #20 tab 08/26/20 [Rx] Follow up Appointment(s)/Referral(s): Shiraz Tilley MD [Primary Care Provider] - 08/30/20 11:30 am Vic Fonseca MD [STAFF PHYSICIAN] - 1 Week Activity/Diet/Wound Care/Special Instructions: No lifting over 10 pounds You may shower. No soaking or tub baths for 2 weeks Very light activity until you are reevaluated at your follow up appointment with your surgeon Diet regular Medicine services recommending further follow-up on right adrenal nodule with patient's PCP that was noted on CAT scan Discharge Disposition: HOME SELF-CARE
--- NOTE | 2020-08-26 14:27 | P.PN ---
Subjective Progress Note Date: 08/26/20 HISTORY OF PRESENT ILLNESS This is a 49-year-old male patient treated for acute gangrenous appendicitis [facility] post laparoscopic appendectomy on August 21. Patient is found in relating in his room. He denies any nausea vomiting. Take the only has a little pain. He denies any diarrhea. He denies any shortness of breath or cough. He has been afebrile since the morning of August 21. Heart rate 63, blood pressure 127/77, pulse ox 96% on room air. Leukocytosis improving to 13.9 PHYSICAL EXAMINATION Gen: This is a 49-year-old male patient. He is in bed. He appears to be in no acute distress. HEENT: Head is atraumatic, normocephalic. Pupils equal, round. Sclerae is anicteric. NECK: Supple. LUNGS: Clear to auscultation. No wheezes or rhonchi. No intercostal retractions. HEART: Regular rate and rhythm. No murmur. ABDOMEN: Soft. No tenderness. EXTREMITIES: No pedal edema. NEUROLOGICAL: Patient is awake, alert and oriented x3. ASSESSMENT Gangrenous appendicitis status post laparoscopic appendectomy Leukocytosis secondary to appendicitis PLAN Continue Zosyn 3.375 g IV piggyback every 8 hours Recommend Augmentin 175/125 mg twice daily for 10 day course, prescription sent to his pharmacy Patient is cleared for discharge from infectious disease. The above dictated assessment and findings were discussed with Dr. Higginbotham. The impression and plan of care have been directed as dictated. Rebecca Allred nurse practitioner acting as scribe for Dr. Higginbotham. Objective - Vital Signs Vital signs: Vital Signs Temp 97.8 F 08/26/20 08:00 Pulse 63 08/26/20 08:00 Resp 16 08/26/20 08:00 BP 127/77 08/26/20 08:00 Pulse Ox 96 08/26/20 08:00 Intake & Output 08/25/20 08/26/20 08/26/20 18:59 06:59 18:59 Intake Total 1600 Output Total 10 Balance -10 1600 Intake: Intake, IV Titration 1000 Amount Piperacillin-Tazobactam 3 100 .375 gm In Sodium Chloride 0.9% 100 ml @ 25 mls/hr IVPB Q8HR [facility] Rx# :[id number] Sodium Chloride 0.9% 1, 900 000 ml @ 75 mls/hr IV . [id number] [facility] Rx#:[id number] Oral 600 Output: Drainage 10 Abdomen 10 Other: Voiding Method Toilet # Voids 4 3 # Bowel Movements 1 1 - Labs CBC & Chem 7: 08/26/20 08:26 08/24/20 06:09 Labs: Abnormal Lab Results - Last 24 Hours (Table) 08/25/20 08/26/20 Range/Units 14:42 08:26 WBC 12.9 H 11.7 H (3.8-10.6) k/uL Neutrophils # (Manual) 8.39 H (1.3-7.7) k/uL Monocytes # (Manual) 1.16 H (0-1.0) k/uL
== END 2020-08-26 15:48 | disposition home or self-care (01) | DRG 854 ==
LOC: EC 18:45 → 4SSUR 20:41 → OBSVTOIN 08-22 08:30
PROVIDERS: ADMIT Surgery; ATTEND Surgery
PROC: 0DTJ4ZZ Resection of Appendix, Percutaneous Endoscopic Approach (ICD-10-PCS; principal; 2020-08-21 08:50)
DX: A41.9 Sepsis, unspecified organism (principal); K35.891 Other acute appendicitis without perforation, with gangrene; Z68.41 Body mass index [BMI] 40.0-44.9, adult; E27.8 Other specified disorders of adrenal gland; E66.9 Obesity, unspecified; Z20.822 Contact with and (suspected) exposure to COVID-19; E78.5 Hyperlipidemia, unspecified; K21.9 Gastro-esophageal reflux disease without esophagitis; K12.30 Oral mucositis (ulcerative), unspecified; N40.0 Benign prostatic hyperplasia without lower urinary tract symptoms; F17.210 Nicotine dependence, cigarettes, uncomplicated; Z71.6 Tobacco abuse counseling; Z79.899 Other long term (current) drug therapy; Z71.3 Dietary counseling and surveillance
CPT/HCPCS: 36415; 74177; 80053; 81003; 82150; 83605; 83690; 85025; 85610; 85730; 87635; 88304; 94760; 96361; 96365; 96366; 96374; 96375; 99285